=== PATIENT | female | born 1965 | race Two or more races ===

== ENCOUNTER 2017-03-23 18:38 | Emergency (ER) | payer MEDICARE, MEDICAID ==
[~2017-03-23] VITALS: Ht 157.5 cm; Wt 120.2 kg
[2017-03-23 20:01] LABS: Basophils # (auto) 0 uL; Basophils % (auto) 0.6 % (0.0-2.0); CONDITION Y; DEFINITIVE SEE PRINTOUT; Eosinophils # (auto) 0.2 uL; Eosinophils % (auto) 3.8 % (0.0-7.0); Hematocrit 35.8 % (36.0-46.0); Hemoglobin 11.2 g/dL (12.2-16.2); Lymphocytes # (auto) 3.3 uL; Lymphocytes % (auto) 51.7 % (10.0-50.0); Mean Corpuscular Hemoglobin 20.4 pg (28.0-32.0); Mean Corpuscular Hgb Conc. 31.3 g/dL (32.0-36.0); Mean Corpuscular Volume 65.3 fL (80.0-100.0); Mean Platelet Volume 8.9 fL (7.4-10.4); Monocytes # (auto) 0.4 uL; Monocytes % (auto) 6.3 % (0.0-12.0); Neutrophils # (auto) 2.4 uL; Neutrophils % (auto) 37.6 % (37.0-80.0); Platelet Count (auto) 397 10^3/uL (140-450); Red Cell Distribution Width 18.2 % (11.6-16.0); White Blood Cell 6.5 10^3/uL (4.4-10.8)
[2017-03-23 20:16] LABS: Albumin 3.5 g/dL (3.4-5.0); BUN/Creatinine Ratio 18.3; Calcium 8.6 mg/dL (8.5-10.1); Potassium 4.3 mmol/L (3.5-5.1)
[2017-03-23 20:18] LABS: Bilirubin, Total 0.3 mg/dL (0.2-1.0); Total Protein 7.6 g/dL (6.4-8.2)
[2017-03-23 23:15] VITALS: BP 140/81
== END 2017-03-24 00:34 | disposition left against medical advice (07) ==
LOC: ER 18:39
DX: M79.605 Pain in left leg (principal); M79.604 Pain in right leg; Z53.21 Procedure and treatment not carried out due to patient leaving prior to being seen by health care provider
CPT/HCPCS: 36415; 80053; 85025; 93970

== ENCOUNTER 2018-03-11 21:27 | Emergency (ER) | payer OTHER, MEDICAID ==
[~2018-03-11] VITALS: Ht 157.5 cm; Wt 113.4 kg
[2018-03-11 22:13] LABS: Hematocrit 33.2 % (36.0-46.0); Mean Corpuscular Hemoglobin 18.7 pg (28.0-32.0); Mean Corpuscular Hgb Conc. 30.2 g/dL (32.0-36.0); Mean Corpuscular Volume 61.9 fL (80.0-100.0); Platelet Count (auto) 340 10^3/uL (140-450); Red Blood Cells 5.37 10^6/uL (4.0-5.20); White Blood Cell 3.8 10^3/uL (4.4-10.8)
[2018-03-11 22:15] LABS: Basophils % (manual) 0 (0.0-2.0); Blast Cells 0; Metamyelocytes % 0; Myelocytes % 0; Promyelocytes % 0; Reactive Lymphocytes 0
[2018-03-11 22:20] LABS: INR 0.97 (0.9-1.15); Partial Thromboplastin Time 26.3 sec (23.78-33.04); Prothrombin Time 10.4 sec (9.27-12.13)
[2018-03-11 22:28] LABS: Alanine Aminotransferase 14 U/L (13-56); Albumin 2.7 g/dL (3.4-5.0); Alkaline Phosphatase 181 U/L (45-117); Anion Gap 4 (5-15); Aspartate Aminotransferase 14 U/L (15-37); BUN/Creatinine Ratio 9.2; Bilirubin, Total 0.5 mg/dL (0.2-1.0); Blood Urea Nitrogen 7 mg/dL (7-18); Calcium 8.1 mg/dL (8.5-10.1); Carbon Dioxide 28 mmol/L (21-32); Chloride 104 mmol/L (98-107); GFR African American 102 mL/min; GFR Non-African American 85 mL/min; Glucose 97 mg/dL (74-106); Potassium 3.6 mmol/L (3.5-5.1); Sodium 136 mmol/L (136-145); Total Protein 8.4 g/dL (6.4-8.2)
[2018-03-11 23:05] LABS: Band Neutrophils % (manual) 5; Eosinophils % (manual) 2 (0-7); Lymphocytes % (manual) 35 (10.0-50.0); Monocytes % (manual) 5 (0-12)
[2018-03-12] MEDS ORDERED: MORPHINE SULF INJ 2 MG/ML SYRINGE 1ML IV ONE (03:30)
[2018-03-12] MEDS ORDERED: ONDANSETRON HCL 4 MG/2 ML VIAL IV ONE (03:30)
[2018-03-12 04:53] LABS: Urine Bacteria FEW /hpf (None Seen); Urine Blood 1+ /uL (Negative); Urine Specific Gravity 1.009 (1.001-1.035); Urine WBC 1 /hpf (0 - 5)
[2018-03-12] MEDS ORDERED: cefTRIAXone SOD 1,000 MG VL IM ONE (07:45)
[2018-03-12 08:34] VITALS: BP 122/73
== END 2018-03-12 10:03 | disposition home or self-care (01) ==
LOC: ER 21:27
DX: L03.116 Cellulitis of left lower limb (principal); M19.90 Unspecified osteoarthritis, unspecified site; I11.0 Hypertensive heart disease with heart failure; I50.9 Heart failure, unspecified
CPT/HCPCS: 36415; 71045; 80053; 81001; 83880; 84484; 85007; 85027; 85610; 85730; 93005; 94761; 96372; 96374; 96375; 99285; J0696; J2270; J2405

== ENCOUNTER 2018-06-06 23:31 | Emergency (ER) | payer OTHER, MEDICAID ==
[~2018-06-06] VITALS: Ht 157.5 cm; Wt 104.3 kg
[2018-06-06 23:56] VITALS: BP 140/94
[2018-06-07] MEDS ORDERED: MEPERIDINE HCL (50 MG/ML) 1 ML VIAL IM ONE (02:00)
[2018-06-07] MEDS ORDERED: ONDANSETRON HCL 4 MG/2 ML VIAL IM ONE (02:00)
== END 2018-06-07 03:11 | disposition home or self-care (01) ==
LOC: ER 23:31
DX: M25.551 Pain in right hip (principal); G89.29 Other chronic pain; M87.9 Osteonecrosis, unspecified; M19.90 Unspecified osteoarthritis, unspecified site; I11.0 Hypertensive heart disease with heart failure; I50.9 Heart failure, unspecified
CPT/HCPCS: J2405

== ENCOUNTER 2018-11-06 10:54 | Emergency (ER) | payer OTHER, MEDICAID ==
[~2018-11-06] VITALS: Ht 157.5 cm; Wt 106.6 kg
[2018-11-06 12:09] VITALS: BP 129/86
[2018-11-06] MEDS ORDERED: KETOROLAC TROMETH 60MG/2ML VIAL IM ONE (12:15)
== END 2018-11-06 12:35 | disposition home or self-care (01) ==
LOC: ER 10:54
DX: M17.11 Unilateral primary osteoarthritis, right knee (principal); M16.11 Unilateral primary osteoarthritis, right hip; M19.90 Unspecified osteoarthritis, unspecified site; I11.0 Hypertensive heart disease with heart failure; I50.9 Heart failure, unspecified
CPT/HCPCS: 96372; 99283; J1885

== ENCOUNTER 2018-11-28 09:31 | Emergency (ER) | payer OTHER, MEDICAID ==
[~2018-11-28] VITALS: Ht 157.5 cm; Wt 108.9 kg
[2018-11-28 10:00] VITALS: BP 160/90
[2018-11-28] MEDS ORDERED: ACETAMINOPHEN/CODEINE#3 (300/30mg) TAB PO ONE (11:15)
== END 2018-11-28 11:27 | disposition home or self-care (01) ==
LOC: ER 09:31
DX: M25.561 Pain in right knee (principal); M19.90 Unspecified osteoarthritis, unspecified site; I11.0 Hypertensive heart disease with heart failure; I50.9 Heart failure, unspecified; Z76.0 Encounter for issue of repeat prescription